=== PATIENT | male | born 1955 | race Caucasian/White ===

== ENCOUNTER 2016-08-03 11:05 | Emergency (ER) | payer MEDICARE, BC ==
[~2016-08-03 11:05] MED LIST: ACULAR5 ML; ARTANE PO; BACLOFEN20 MG PO; BUMETANIDE1 M1 PO; CARBIDOPA-LEVO1 EAC9 PO; CELEXA10 MG PO; CYANOCOBAL1000 MCG/3 IM; FLONASE ALLERG9.9 ML; KLONOPIN0.5 M1 PO; KLONOPIN0.5 MG PO; LEXAPRO20 M2 PO; LIDODERM700 MG TOP; LUNESTA2 MG PO; MIRALAX17 G2 PO; NORCO 5-325 TA1 EACH PO; PRAVACHOL40 MG PO; ROXICODONE5 M2 PO; SELEGILINE HCL5 M2 PO; SENNA8.6 M2 PO; SKELAXIN800 M3 PO; SOMA350 M1 PO; TRAZODONE HCL50 M1 PO; TYLENOL EXTRA500 M1 PO; WELLBUTRIN XL150 M1 PO
[2016-08-03 12:41] LABS: BASO % 0.5 % (0-2); EOS % 1.4 % (0-7); EOSINOPHIL ABSOLUTE COUNT 0.1 tho/cmm (0.0-0.7); HCT-HEMATOCRIT 42.1 % (36.0-53.5); HGB-HEMOGLOBIN 14.3 gm/dl (13.5-17.0); IMMATURE GRANULOCYTES ABSOLUTE 0.01 tho/cmm (0-0.03); IMMATURE GRANULOCYTES PERCENT 0.2 % (0-0.3); MCH (MEAN CORPUSCULAR HGB) 30.6 pg (28.0-32.0); MEAN PLATELET VOLUME 8.9 cmc (9.4-12.4); MONO % 10.6 % (0-12); MONOCYTE ABSOLUTE COUNT 0.7 tho/cmm (0.0-1.2); NEUTROPHIL ABSOLUTE COUNT 4.5 tho/cmm (1.6-8.0); NEUTROPHIL-AUTOMATED 4.5 tho/cmm (1.6-8.0); NEUTROPHILS % 71.3 % (40-80); PLATELET COUNT 177 tho/cmm (150-450); RED BLOOD COUNT 4.68 mil/cmm (4.40-5.70); RED CELL DISTRIBUTION WIDTH 13.1 % (12.4-16.4); WHITE BLOOD COUNT 6.3 tho/cmm (4.0-10.0)
[2016-08-03] MEDS ORDERED: FLUDROCORTISON0.1 M1 PO (12:50)
[2016-08-03] MEDS ORDERED: MYRBETRIQ50 M1 PO (12:51)
[2016-08-03] MEDS ORDERED: KLONOPIN0.5 M1 PO (12:52)
[2016-08-03] MEDS ORDERED: LANOXIN125 MC3 PO (12:54)
[2016-08-03 12:55] LABS: ALB/GLOB RATIO 1.2 (0.8-2.0); ALBUMIN 3.5 g/dl (3.5-5.0); ALKALINE PHOSPHATASE 61 U/L (33-138); BILIRUBIN,TOTAL 0.8 mg/dl (0.0-1.5); BLOOD UREA NITROGEN 19 mg/dl (6-24); CALCIUM 8.6 mg/dl (8.5-10.5); CARBON DIOXIDE-VENOUS 29 mmol/L (22-32); CHLORIDE 108 mmol/l (96-110); CREATININE 0.72 mg/dl (0.60-1.30); GLUCOSE 102 mg/dL (70-110); SODIUM 142 mmol/L (135-145); eGFR VALUE FOR BLACK >90 mL/Min
[2016-08-03 12:58] LABS: ANION GAP 9 mmol/L (0-20)
[2016-08-03 12:59] LABS: ALT/SGPT <10 U/L (12-78); AST/SGOT 23 U/L (10-40); POTASSIUM 4.2 mmol/L (3.7-5.1)
[2016-08-03 13:31] LABS: URINE BILIRUBIN NEGATIVE (NEG); URINE BLOOD SMALL (NEG); URINE GLUCOSE (UA) NEGATIVE (NEG); URINE KETONE SMALL (NEG); URINE LEUKOCYTE ESTERASE NEGATIVE (NEG); URINE NITRITE NEGATIVE (NEG); URINE PROTEIN NEGATIVE (NEG); URINE SPECIFIC GRAVITY 1.015 (1.003-1.030)
[2016-08-03 13:32] LABS: URINE APPEARANCE CLOUDY; URINE COLOR YELLOW
[2016-08-03] MEDS ORDERED: MELATONIN10 M6 PO (13:42)
[2016-08-03 13:43] LABS: URINE WBC 0 /[HPF] (0-5)
[2016-08-03 13:44] LABS: URINE AMORPHOUS 3+; URINE BACTERIA 1+; URINE EPITHELIAL CELLS 0-1 /[HPF] (0-10); URINE RBC 0-3 /[HPF] (0-5)
[2017-01-17] MEDS ORDERED: RYTARY ER 61.21 EACH PO (06:37)
[2017-01-17] MEDS ORDERED: SELEGILINE HCL5 M1 PO (06:38)
[2017-01-17] MEDS ORDERED: SEROQUEL25 M2 PO (06:40)
[2017-02-22] MEDS ORDERED: TRAZODONE HCL50 M1 PO (02:51)
== END 2016-08-03 14:13 ==
LOC: EDMED 11:05
PROVIDERS: Emergency Medicine
DX: S09.90XA Unspecified injury of head, initial encounter (principal); R42 Dizziness and giddiness; G20 Parkinson's disease; X58.XXXA Exposure to other specified factors, initial encounter

== ENCOUNTER 2016-09-07 02:44 | Observation (INO) | payer MEDICARE, BC ==
[~2016-09-07 02:44] MED LIST changes: +FLUDROCORTISON0.1 M1 PO; +LANOXIN125 MC3 PO; +MELATONIN10 M6 PO; +MYRBETRIQ50 M1 PO
[2016-09-07 03:28] LABS: URINE APPEARANCE CLEAR; URINE BILIRUBIN NEGATIVE (NEG); URINE BLOOD MODERATE (NEG); URINE COLOR YELLOW; URINE GLUCOSE (UA) NEGATIVE (NEG); URINE KETONE MODERATE (NEG); URINE LEUKOCYTE ESTERASE NEGATIVE (NEG); URINE NITRITE NEGATIVE (NEG); URINE PROTEIN SMALL (NEG)
[2016-09-07] MEDS ORDERED: KLONOPIN0.5 M1 PO ×2 (03:29→07:27)
[2016-09-07 03:40] LABS: URINE EPITHELIAL CELLS RARE /[HPF] (0-10); URINE WBC 0 /[HPF] (0-5)
[2016-09-07 03:50] LABS: BASO % 0.5 % (0-2); EOS % 0.9 % (0-7); EOSINOPHIL ABSOLUTE COUNT 0.1 tho/cmm (0.0-0.7); HCT-HEMATOCRIT 46.5 % (36.0-53.5); HGB-HEMOGLOBIN 16.1 gm/dl (13.5-17.0); IMMATURE GRANULOCYTES ABSOLUTE 0.02 tho/cmm (0-0.03); IMMATURE GRANULOCYTES PERCENT 0.3 % (0-0.3); LYMPH % 17.8 % (20-45); LYMPH ABSOLUTE COUNT 1.4 tho/cmm (0.8-4.5); MCH (MEAN CORPUSCULAR HGB) 30.8 pg (28.0-32.0); MCHC MEAN CORPUSCULAR HGB CONC 34.6 % (32.0-36.0); MCV (MEAN CELL VOLUME) 88.9 fl (82.0-96.0); MEAN PLATELET VOLUME 8.7 cmc (9.4-12.4); MONO % 10.9 % (0-12); MONOCYTE ABSOLUTE COUNT 0.8 tho/cmm (0.0-1.2); NEUTROPHIL ABSOLUTE COUNT 5.3 tho/cmm (1.6-8.0); NEUTROPHIL-AUTOMATED 5.3 tho/cmm (1.6-8.0); NEUTROPHILS % 69.6 % (40-80); PLATELET COUNT 214 tho/cmm (150-450); RED BLOOD COUNT 5.23 mil/cmm (4.40-5.70); RED CELL DISTRIBUTION WIDTH 12.9 % (12.4-16.4); WHITE BLOOD COUNT 7.7 tho/cmm (4.0-10.0)
[2016-09-07 03:59] LABS: ANION GAP 13 mmol/L (0-20); BLOOD UREA NITROGEN 18 mg/dl (6-24); CARBON DIOXIDE-VENOUS 26 mmol/L (22-32); CHLORIDE 107 mmol/l (96-110); CREATININE 0.88 mg/dl (0.60-1.30); GLUCOSE 101 mg/dL (70-110); MAGNESIUM 2.1 mg/dl (1.8-2.6); POTASSIUM 3.8 mmol/L (3.7-5.1); SODIUM 142 mmol/L (135-145); eGFR VALUE FOR BLACK >90 mL/Min
[2016-09-07] MEDS ORDERED: TOPROL XL25 M1 PO (06:21)
[2016-09-07] MEDS ORDERED: KLONOPIN1 M1 PO (10:28)
[2017-01-17] MEDS ORDERED: RYTARY ER 61.21 EACH PO (06:37)
[2017-01-17] MEDS ORDERED: SELEGILINE HCL5 M1 PO (06:38)
[2017-01-17] MEDS ORDERED: SEROQUEL25 M2 PO (06:40)
[2017-02-22] MEDS ORDERED: TRAZODONE HCL50 M1 PO (02:51)
== END 2016-09-07 10:50 ==
LOC: EDMED 02:44 → EMR2 05:31 → CAR1 06:35
PROVIDERS: Emergency Medicine; ADMIT Hospitalist
DX: G20 Parkinson's disease (principal); I10 Essential (primary) hypertension; K59.00 Constipation, unspecified; R53.1 Weakness; J30.2 Other seasonal allergic rhinitis; I95.1 Orthostatic hypotension; Z88.8 Allergy status to other drugs, medicaments and biological substances; Z88.6 Allergy status to analgesic agent; Z79.899 Other long term (current) drug therapy
CPT/HCPCS: G0378; G8978-GP-CJ; G8979-GP-CJ; G8980-GP-CJ; G8987-GO-CH; G8988-GO-CH; G8989-GO-CH; J2060; J2270; J2405; J7030

== ENCOUNTER 2016-09-08 10:14 | Observation (INO) | payer MEDICARE, BC ==
[~2016-09-08 10:14] MED LIST changes: +KLONOPIN1 M1 PO; +TOPROL XL25 M1 PO
[2016-09-08 11:02] LABS: BASO % 0.1 % (0-2); HCT-HEMATOCRIT 45.4 % (36.0-53.5); HGB-HEMOGLOBIN 15.6 gm/dl (13.5-17.0); IMMATURE GRANULOCYTES ABSOLUTE 0.03 tho/cmm (0-0.03); IMMATURE GRANULOCYTES PERCENT 0.2 % (0-0.3); LYMPH % 4.8 % (20-45); LYMPH ABSOLUTE COUNT 0.7 tho/cmm (0.8-4.5); MCH (MEAN CORPUSCULAR HGB) 30.8 pg (28.0-32.0); MCHC MEAN CORPUSCULAR HGB CONC 34.4 % (32.0-36.0); MCV (MEAN CELL VOLUME) 89.7 fl (82.0-96.0); MEAN PLATELET VOLUME 8.8 cmc (9.4-12.4); MONO % 3.4 % (0-12); MONOCYTE ABSOLUTE COUNT 0.5 tho/cmm (0.0-1.2); NEUTROPHIL ABSOLUTE COUNT 14.2 tho/cmm (1.6-8.0); NEUTROPHIL-AUTOMATED 14.2 tho/cmm (1.6-8.0); NEUTROPHILS % 91.5 % (40-80); PLATELET COUNT 212 tho/cmm (150-450); RED BLOOD COUNT 5.06 mil/cmm (4.40-5.70); RED CELL DISTRIBUTION WIDTH 13.1 % (12.4-16.4)
[2016-09-08 11:17] LABS: CALCIUM 9.3 mg/dl (8.5-10.5); CARBON DIOXIDE-VENOUS 24 mmol/L (22-32); CHLORIDE 107 mmol/l (96-110); GLUCOSE 122 mg/dL (70-110); SODIUM 142 mmol/L (135-145); WHITE BLOOD COUNT 15.5 tho/cmm (4.0-10.0)
[2016-09-08 11:18] LABS: ANION GAP 15 mmol/L (0-20); BLOOD UREA NITROGEN 29 mg/dl (6-24); CREATINE PHOSPHOKINASE (CPK) 820 U/L (35-232); CREATININE 1.18 mg/dl (0.60-1.30); MAGNESIUM 2.4 mg/dl (1.8-2.6); POTASSIUM 4.3 mmol/L (3.7-5.1); eGFR VALUE FOR BLACK 76 mL/Min
[2016-09-08 12:43] LABS: URINE BILIRUBIN NEGATIVE (NEG); URINE BLOOD SMALL (NEG); URINE GLUCOSE (UA) NEGATIVE (NEG); URINE KETONE MODERATE (NEG); URINE LEUKOCYTE ESTERASE NEGATIVE (NEG); URINE NITRITE NEGATIVE (NEG); URINE PROTEIN MODERATE (NEG)
[2016-09-08 12:46] LABS: URINE APPEARANCE CLEAR; URINE COLOR YELLOW
[2016-09-08 12:54] LABS: URINE EPITHELIAL CELLS 0-1 /[HPF] (0-10); URINE MUCUS 1+; URINE WBC 0-2 /[HPF] (0-5)
[2016-09-09 05:12] LABS: BASO % 0.2 % (0-2); EOS % 0.5 % (0-7); EOSINOPHIL ABSOLUTE COUNT 0.1 tho/cmm (0.0-0.7); HCT-HEMATOCRIT 40.4 % (36.0-53.5); HGB-HEMOGLOBIN 13.5 gm/dl (13.5-17.0); IMMATURE GRANULOCYTES ABSOLUTE 0.04 tho/cmm (0-0.03); IMMATURE GRANULOCYTES PERCENT 0.4 % (0-0.3); LYMPH % 15.3 % (20-45); LYMPH ABSOLUTE COUNT 1.4 tho/cmm (0.8-4.5); MCHC MEAN CORPUSCULAR HGB CONC 33.4 % (32.0-36.0); MCV (MEAN CELL VOLUME) 89.8 fl (82.0-96.0); MEAN PLATELET VOLUME 9.1 cmc (9.4-12.4); MONO % 16.7 % (0-12); MONOCYTE ABSOLUTE COUNT 1.5 tho/cmm (0.0-1.2); NEUTROPHIL ABSOLUTE COUNT 6.2 tho/cmm (1.6-8.0); NEUTROPHIL-AUTOMATED 6.2 tho/cmm (1.6-8.0); NEUTROPHILS % 66.9 % (40-80); PLATELET COUNT 183 tho/cmm (150-450); RED CELL DISTRIBUTION WIDTH 13.3 % (12.4-16.4); WHITE BLOOD COUNT 9.2 tho/cmm (4.0-10.0)
[2016-09-10] MEDS ORDERED: TYLENOL325 M2 PO (14:26)
[2016-09-10] MEDS ORDERED: KLONOPIN0.5 M1 PO (14:29)
[2017-01-17] MEDS ORDERED: RYTARY ER 61.21 EACH PO (06:37)
[2017-01-17] MEDS ORDERED: SELEGILINE HCL5 M1 PO (06:38)
[2017-01-17] MEDS ORDERED: SEROQUEL25 M2 PO (06:40)
[2017-02-22] MEDS ORDERED: TRAZODONE HCL50 M1 PO (02:51)
== END 2016-09-10 15:04 ==
LOC: EDMED 10:14 → EMR2 13:07 → CAR1 14:05
PROVIDERS: Emergency Medicine; ADMIT Hospitalist
DX: G20 Parkinson's disease (principal); R62.7 Adult failure to thrive; I95.1 Orthostatic hypotension; K59.00 Constipation, unspecified; I10 Essential (primary) hypertension; Z88.6 Allergy status to analgesic agent; Z79.899 Other long term (current) drug therapy; H26.9 Unspecified cataract; Z88.8 Allergy status to other drugs, medicaments and biological substances; E86.0 Dehydration
CPT/HCPCS: G0378; G8978-GP-CK; G8979-GP-CK; G8980-GP-CK; G8987-GO-CK; G8988-GO-CJ; G8989-GO-CK; J7030

== ENCOUNTER 2016-10-13 23:32 | Emergency (ER) | payer MEDICARE, BC ==
[~2016-10-13 23:32] MED LIST changes: +TYLENOL325 M2 PO
[2017-01-17] MEDS ORDERED: RYTARY ER 61.21 EACH PO (06:37)
[2017-01-17] MEDS ORDERED: SELEGILINE HCL5 M1 PO (06:38)
[2017-01-17] MEDS ORDERED: SEROQUEL25 M2 PO (06:40)
[2017-02-22] MEDS ORDERED: TRAZODONE HCL50 M1 PO (02:51)
== END 2016-10-14 00:14 | disposition left against medical advice (07) ==
LOC: EDMED 23:32
DX: Z53.21 Procedure and treatment not carried out due to patient leaving prior to being seen by health care provider (principal)